=== PATIENT | male | born 1960 | race Caucasian/White ===

== ENCOUNTER 2020-11-10 17:25 | Outpatient (CLI) | payer BC ==
[2020-11-10 18:29] LABS: Anion Gap 16 mmol/L (10-20); BUN (Urea Nitrogen) 18 mg/dL (8.4-25.7); Calc. Creatinine Clearance 0 mL/min (70-130); Calcium 9.6 mg/dL (7.8-10.44); Carbon Dioxide 25 mmol/L (22-29); Chloride 103 mmol/L (98-107); Glucose 82 mg/dL (70-105); Potassium 4.5 mmol/L (3.5-5.1); Sodium 139 mmol/L (136-145)
[2020-11-11 02:37] LABS: SARS-CoV-2 PCR by NAA Not Detected (NotDetected)
== END 2020-11-10 17:26 | disposition home or self-care (01) ==
LOC: LABBT 17:25
PROVIDERS: ATTEND Urology
DX: Z01.812 Encounter for preprocedural laboratory examination (principal); Z20.822 Contact with and (suspected) exposure to COVID-19
CPT/HCPCS: 80048; 87635; U0003; U0005

== ENCOUNTER 2020-11-15 05:45 | Day surgery (SDC) | payer BC ==
[2020-11-11 13:05] VITALS: BMI 28.5
[2020-11-15] MEDS ORDERED: Levofloxacin 500 mg/D5W 100 ml Premix Bag ONE (07:03)
[2020-11-15] MEDS ORDERED: Iothalamate Meglumine 60% 50 ML VIAL FS ONE (07:19)
[2020-11-15] MEDS ORDERED: Fentanyl 100 MCG/2 ML VIAL ONE ×2 (07:26→08:18)
[2020-11-15] MEDS ORDERED: Midazolam HCl 2 mg/2 ml Vial ONE (07:27)
--- NOTE | 2020-11-15 08:18 | RAD ---
Retrograde pyelogram: 11/15/2020 COMPARISON: None HISTORY: Stent placement FINDINGS: A single image is provided. There is contrast media within the renal collecting system bila terally. There are bilateral double-J ureteral stents. IMPRESSION: Bilateral double-J ureteral stents present.
[2020-11-15] MEDS ORDERED: Ketorolac Tromethamine 30 MG/ML VIAL ONE ×2 (08:25→09:10)
--- NOTE | 2020-11-15 08:34 | OP ---
DATE OF PROCEDURE: 11/15/2020 PREOPERATIVE DIAGNOSIS: Bilateral ureteral stones. POSTOPERATIVE DIAGNOSIS: Bilateral ureteral stones. PROCEDURES PERFORMED: Bilateral ureteroscopy, laser lithotripsy, stent exchange with placement of 4.8 x 26 double-J ureteral stent bilaterally, basket extraction of stone, retrograde pyelogram, intraoperative interpretation, radiologic imaging. ANESTHESIA: General. COMPLICATIONS: None. ESTIMATED BLOOD LOSS: Minimal. SPECIMEN: Bilateral stone fragments sent together. DESCRIPTION OF PROCEDURE: After informed consent, the patient was taken to the operating room, transferred to the table under his own power. Anesthesia was established. A time-out was performed showing the correct patient, site, and procedure. Preoperative antibiotics were administered. He was prepped and draped in the lithotomy position. The rigid cystoscope was advanced through the urethra noting normal course and caliber to the urethra and nonobstructing prostate and guided into the bladder. The right stent was removed and a wire was passed through this and then the scope was reinserted and the left stent was removed and a wire was passed through this. The semi-rigid ureteroscope was then passed alongside the wire into the right ureter until the stone was identified in the distal ureter. This was treated with a 365 micron laser fiber, breaking into several small fragments, which were all removed with a 1.9 cm Nitinol basket. A retrograde pyelogram was performed showing good filling of the remainder of the ureter with no filling defects or hydronephrosis. The scope was passed up to the level of the mid to proximal ureter noting no further abnormalities or stone pieces. The scope was withdrawn and a 4.8 x 26 double-J ureteral stent with strings was passed over the wire with a curl in the kidney and curl in the bladder under fluoroscopic guidance. The ureteroscope was then passed into the left ureter until the stone was encountered in the proximal ureter. This was treated with the 365 micron laser fiber and the pieces removed with the 1.9 cm Nitinol basket. The scope was then passed into the renal pelvis, noting no further stone fragments or abnormalities. A retrograde pyelogram was performed showing good filling of the left renal pelvis with minimal hydronephrosis. The scope was withdrawn and a 4.8 x 26 double-J ureteral stent placed over the wire with a curl in the kidney and curl in the bladder under fluoroscopic guidance. Completion images were taken. The strings were then taped to the patient's penis with a Tegaderm. He was awoken from anesthesia, transferred back to his hospital bed, and taken to PACU in stable condition, where he will discharge home upon recovery. Job ID: [id number]
[2020-11-15] MEDS ORDERED: PROPOFOL 200 MG/20 ML VIAL ONE (09:10)
[2020-11-15] MEDS ORDERED: ePHEDrine 50 MG/ML VIAL ONE (09:10)
[2020-11-15] MEDS ORDERED: Ondansetron PF 4 MG/2 ML Vial ONE (09:10)
[2020-11-15] MEDS ORDERED: Lidocaine 1% PF 5 ML VIAL ONE (09:10)
[2020-11-15] MEDS ORDERED: Dexamethasone 20 MG/5 ML VIAL ONE (09:10)
[2020-11-18 18:37] LABS: CA Oxalate Dihydrate 20 % (.); CA Oxalate Monohydrate 80 % (.); Color Brown (.); Stone Weight 103 mg (.)
== END 2020-11-15 09:29 | disposition home or self-care (01) ==
LOC: SDC 05:45
PROVIDERS: ATTEND Urology
PROC: 0T788DZ Dilation of Bilateral Ureters with Intraluminal Device, Via Natural or Artificial Opening Endoscopic (ICD-10-PCS; principal; 2020-11-15)
PROC: 0TC68ZZ Extirpation of Matter from Right Ureter, Via Natural or Artificial Opening Endoscopic (ICD-10-PCS; principal; 2020-11-15)
PROC: 0TC78ZZ Extirpation of Matter from Left Ureter, Via Natural or Artificial Opening Endoscopic (ICD-10-PCS; principal; 2020-11-15)
DX: N13.2 Hydronephrosis with renal and ureteral calculous obstruction (principal); Z79.899 Other long term (current) drug therapy
CPT/HCPCS: 74420; 82365; 88300; J1100; J1885; J1956; J2250; J2405; J2704; J3010; J3490

== ENCOUNTER 2021-07-05 12:10 | Outpatient (CLI) | payer BC | END 2021-07-05 12:11 | disposition home or self-care (01) | LOC: BICRAD 12:10 | PROVIDERS: ATTEND Urology | DX: E83.59 Other disorders of calcium metabolism (principal) | CPT/HCPCS: 74018 ==